=== PATIENT | female | born 1950 | race Caucasian/White ===

== ENCOUNTER 2021-09-08 11:46 | Outpatient (CLI) | payer MEDICARE ==
[2021-09-09 11:47] LABS: SARS-CoV-2 PCR by NAA Not Detected (NotDetected)
== END 2021-09-08 11:47 | disposition home or self-care (01) ==
LOC: CSHLAB 11:46
PROVIDERS: ATTEND Internal Medicine Critical Care Medicine
DX: Z20.822 Contact with and (suspected) exposure to COVID-19 (principal)
CPT/HCPCS: U0003; U0005

== ENCOUNTER 2021-09-12 12:26 | Outpatient (CLI) | payer MEDICARE | END 2021-09-12 12:27 | disposition home or self-care (01) | LOC: CSHCP 12:26 | PROVIDERS: ATTEND Internal Medicine Critical Care Medicine | DX: I27.20 Pulmonary hypertension, unspecified (principal); J98.4 Other disorders of lung | CPT/HCPCS: 94060; 94726; 94729; 94760 ==

== ENCOUNTER 2022-03-03 09:39 | Outpatient (CLI) | payer MEDICARE | END 2022-03-03 09:40 | disposition home or self-care (01) | LOC: CSHMAMMO 09:39 | PROVIDERS: ATTEND Specialist | DX: Z12.31 Encounter for screening mammogram for malignant neoplasm of breast (principal); M81.0 Age-related osteoporosis without current pathological fracture; N63.10 Unspecified lump in the right breast, unspecified quadrant; N63.20 Unspecified lump in the left breast, unspecified quadrant; R92.0 Mammographic microcalcification found on diagnostic imaging of breast; M85.89 Other specified disorders of bone density and structure, multiple sites; Z87.81 Personal history of (healed) traumatic fracture | CPT/HCPCS: 77063; 77067; 77080 ==

== ENCOUNTER 2022-03-13 09:35 | Outpatient (CLI) | payer MEDICARE | END 2022-03-13 09:36 | disposition home or self-care (01) | LOC: CSHMAMMO 09:35 | PROVIDERS: ATTEND Plastic Surgery Surgery of the Hand | DX: R92.1 Mammographic calcification found on diagnostic imaging of breast (principal) | CPT/HCPCS: 77065; G0279 ==

== ENCOUNTER → 2022-03-24 | Day surgery (SDC) | payer MEDICARE | LOC: CSHMAMMO 12:29 | PROVIDERS: ATTEND Specialist | DX: C50.512 Malignant neoplasm of lower-outer quadrant of left female breast (principal); N60.22 Fibroadenosis of left breast; N60.82 Other benign mammary dysplasias of left breast; N60.32 Fibrosclerosis of left breast; N60.02 Solitary cyst of left breast; Z17.0 Estrogen receptor positive status [ER+] | CPT/HCPCS: 19081; 76098; 88305; 88341; 88342; 88360; 88361 ==

== ENCOUNTER 2023-04-20 09:33 | Outpatient (CLI) | payer MEDICARE | END 2023-04-20 09:34 | disposition home or self-care (01) | LOC: CSHMAMMO 09:33 | PROVIDERS: ATTEND Surgery | DX: Z08 Encounter for follow-up examination after completed treatment for malignant neoplasm (principal); Z85.3 Personal history of malignant neoplasm of breast | CPT/HCPCS: 77066; G0279 ==

== ENCOUNTER 2024-05-09 12:57 | Outpatient (CLI) | payer MEDICARE | END 2024-05-09 12:58 | disposition home or self-care (01) | LOC: CSHMAMMO 12:57 | PROVIDERS: ATTEND Surgery | DX: Z08 Encounter for follow-up examination after completed treatment for malignant neoplasm (principal); M81.0 Age-related osteoporosis without current pathological fracture; M85.89 Other specified disorders of bone density and structure, multiple sites; Z86.000 Personal history of in-situ neoplasm of breast | CPT/HCPCS: 77066; 77080; G0279 ==